=== PATIENT | female | born 1970 | race American Indian/Alaskan Native ===

== ENCOUNTER 2020-07-22 09:49 | Emergency (ER) | payer SELFPAY ==
[2020-07-22 10:20] VITALS: BP 136/79
--- NOTE | 2020-07-22 10:42 | Emergency Department Report ---
- General Chief Complaint: Medical Clearance Stated Complaint: FEVER/HEADACHE/WHEEZING Time Seen by Provider: 07/22/20 10:37 Source: patient Mode of arrival: Ambulatory Limitations: No Limitations - History of Present Illness Initial Comments: Patient is a 50-year-old female presents emergency room with complaints of "not feeling well" since three days ago. She has associated fever of 102 which resolved after taking medication. She states that she has not taken anything for a fever today. She states that she believes her fever broke. She states that she is also had fatigue, generalized body aches, headache, chills. She denies any nausea, vomiting, diarrhea, cough, shortness of breath, abdominal pain, chest pain. She states that her grandchildren do have colds. She states that she also traveled to [place] during . She has a past medical history of lupus and fibromyalgia. No allergies to medications. She states that she is postmenopausal. - Related Data Allergies Allergy/AdvReac Type Severity Reaction Status Date / Time No Known Allergies Allergy Unverified 07/22/20 10:17 ED Review of Systems ROS: Stated complaint: FEVER/HEADACHE/WHEEZING Other details as noted in HPI Comment: All other systems reviewed and negative ED Past Medical Hx - Past Medical History Previous Medical History?: Yes Additional medical history: Lupus ED Physical Exam - General Limitations: No Limitations General appearance: alert, in no apparent distress - Head Head exam: Present: atraumatic, normocephalic - Eye Eye exam: Present: normal appearance - ENT ENT exam: Present: normal orophraynx, mucous membranes moist, TM's normal bilaterally, normal external ear exam - Respiratory Respiratory exam: Present: normal lung sounds bilaterally. Absent: respiratory distress, wheezes, rales, rhonchi, stridor, chest wall tenderness, accessory muscle use, decreased breath sounds, prolonged expiratory - Cardiovascular Cardiovascular Exam: Present: regular rate, normal rhythm, normal heart sounds. Absent: systolic murmur, diastolic murmur, rubs, gallop - Extremities Exam Extremities exam: Present: normal inspection, full ROM, normal capillary refill. Absent: tenderness, joint swelling, calf tenderness - Neurological Exam Neurological exam: Present: alert, oriented X3 - Psychiatric Psychiatric exam: Present: normal affect, normal mood - Skin Skin exam: Present: warm, dry, intact ED Course Vital Signs 07/22/20 10:19 Temperature 98.0 F Pulse Rate 71 Respiratory 18 Rate Blood Pressure 136/79 [Right] O2 Sat by Pulse 98 Oximetry ED Medical Decision Making - Medical Decision Making Patient is a 50-year-old female presents emergency room with complaints of "not feeling well" since three days ago. She has associated fever of 102 which resolved after taking medication. She states that she has not taken anything for a fever today. She states that she believes her fever broke. She states that she is also had fatigue, generalized body aches, headache, chills. She denies any nausea, vomiting, diarrhea, cough, shortness of breath, abdominal pain, chest pain. She states that her grandchildren do have colds. She states that she also traveled to [place] during . She has a past medical history of lupus and fibromyalgia. No allergies to medications. She states that she is postmenopausal. Vitals are stable. Patient has no fever, no tachycardia, no hypoxia. On exam: Normal oropharynx, normal TMs and canals, normal breath sounds bilaterally, no wheezing, no rales, no rhonchi, no stridor, neurosurgeons, no accessory muscle use. Symptoms likely related to a viral URI. She has no clinical signs or symptoms of bacterial pneumonia or bacterial bronchitis. She has no clinical signs or symptoms of dehydration. Patient is presenting with the symptoms during COVID-19 pandemic, discussed COVID-19 with patient, discuss strict return precautions, discussed outpatient testing, discussed self quarantine. Patient does not meet hospital criteria for admissi on or for hospital COVID-19 testing. advised pt Please increase your fluid intake over the next several days. May take Tylenol as needed for fever or body aches. May take [id number] cold symptom relief medication such as Mucinex or TheraFlu. Follow-up with a primary care doctor for reexamination. Return to emergency room immediately for any new or worsening symptoms including but not limited to difficulty breathing, shortness of breath, severe chest pain, unable to tolerate by mouth intake, etc. Please self quarantine for 10 days from the onset of your symptoms. Please do not go out in public. If you are around others at home please wear a mask. If you need to cough or sneeze please do so in a napkin and immediately throw it away and immediately wash your hands. Wash your hands frequently. Wipe everything down. Recommend for you to get COVID-19 testing, may have this done at primary care doctor, health department, [facility] thru testing center. - Differential Diagnosis URI, PNA, bronchitis, COVID 19, influenza, viral syndrome Critical care attestation.: If time is entered above; I have spent that time in minutes in the direct care of this critically ill patient, excluding procedure time. ED Disposition Clinical Impression: Viral URI Disposition: DC- TO HOME OR SELFCARE Is pt being admited?: No Does the pt Need Aspirin: No Condition: Stable Instructions: Viral Respiratory Infection, [id number] Additional Instructions: Please increase your fluid intake over the next several days. May take Tylenol as needed for fever or body aches. May take [id number] cold symptom relief medication such as Mucinex or TheraFlu. Follow-up with a primary care doctor for reexamination. Return to emergency room immediately for any new or worsening symptoms including but not limited to difficulty breathing, shortness of breath, severe chest pain, unable to tolerate by mouth intake, etc. Please self quarantine for 10 days from the onset of your symptoms. Please do not go out in public. If you are around others at home please wear a mask. If you need to cough or sneeze please do so in a napkin and immediately throw it away and immediately wash your hands. Wash your hands frequently. Wipe everything down. Recommend for you to get COVID-19 testing, may have this done at primary care [facility], [facility]. Referrals: CHELLY DENNIS MD [Staff Physician] - 2-3 Days ALESSIO BOYD MD [Staff Physician] - 2-3 Days [facility] [Provider Group] - 2-3 Days KAREEM NARVAEZ MD [Staff Physician] - 2-3 Days [facility] [Primary Care Provider] - 2-3 Days Forms: Work/School Release Form(ED) Time of Disposition: 10:40 Print Language: ESTONIAN
== END 2020-07-22 10:58 | disposition home or self-care (01) ==
LOC: ED 09:49
DX: J06.9 Acute upper respiratory infection, unspecified (principal)
CPT/HCPCS: 99281